=== PATIENT | male | born 1990 | race Two or more races ===

== ENCOUNTER 2024-02-16 11:01 | Outpatient (REF) | payer OTHER, SELFPAY ==
[2024-02-16 13:03] LABS: MANUAL DIFF FLAG NO
[2024-02-16 13:06] LABS: Basophils Absolute Auto 0.1 X10*3/uL (0.0-0.2); Basophils Percent Auto 1.2 % (0-2); Eosinophils Absolute Auto 0.1 X10*3/uL (0.0-0.4); Eosinophils Percent Auto 1.1 % (0-4); Hematocrit 41.7 % (42.0-52.0); Hemoglobin 14.3 g/dl (14.0-18.0); Imm Gran Abs Auto 0.02 X10*3/uL (0.00-0.03); Imm Gran Pct Auto 0.3 % (0.0-0.4); Lymphocytes Absolute Auto 1.8 X10*3/uL (1.2-4.9); Lymphocytes Percent Auto 23.5 % (20-40); Mean Corpuscular HGB Conc 34.3 g/dl (31.0-36.0); Mean Corpuscular Hemoglobin 31.8 pg (27.0-33.0); Mean Corpuscular Volume 92.7 fL (80.0-98.0); Mean Platelet Volume 9.9 fL (9.4-12.4); Monocytes Absolute Auto 0.7 X10*3/uL (0.1-1.2); Monocytes Percent Auto 9.5 % (2-11); Neutrophils Absolute Auto 4.8 x10*3/uL (2.0-8.3); Neutrophils Percent Auto 64.4 % (45-73); Platelet Count 303 X10*3/uL (160-400); Red Cell Distribution Width 12.7 % (11.0-16.0); White Blood Count 7.5 X10*3/uL (4.8-10.8)
[2024-02-16 13:16] LABS: Anion Gap 11 (12-20); Blood Urea Nitrogen 14 mg/dL (9-16); Calcium 9.4 mg/dL (8.4-10.2); Carbon Dioxide 28 mmol/L (22-29); Chloride 104 mmol/L (96-108); Cholesterol 213 mg/dL (<200); Estimated Glomerular Filt Rate > 60; Glucose Random 96 mg/dL (60-115); Potassium 4.4 mmol/L (3.3-5.1); Sodium 139 mmol/L (135-145)
== END 2024-02-16 11:02 | disposition home or self-care (01) ==
LOC: HO.10HDL 11:01
PROVIDERS: Visit Provider Internal Medicine
DX: R63.4 Abnormal weight loss (principal); Z83.3 Family history of diabetes mellitus
CPT/HCPCS: 36415; 80048; 82465; 85025

== ENCOUNTER 2024-05-22 04:36 | Emergency (ER) | payer OTHER, SELFPAY ==
[2024-05-22] VITALS (7 sets, daily range): BP systolic 104–158; BP diastolic 49–94; PULSE 70–95; RESP 16–20; TEMP 36.7–37; O2SAT 96–100; BMI 30.7
--- NOTE | ~2024-05-22 | CT_ITS ---
EXAMINATION: CT ABDOMEN AND PELVIS WITHOUT CONTRAST CLINICAL INFORMATION: Left flank pain with history of kidney stone. COMPARISON: CT abdomen and pelvis 03/14/2012. TECHNIQUE: Multidetector volumetric imaging was performed from the superior aspect of the liver through the pubic symphysis. Sagittal and coronal reformatted images were obtained on the technologist's workstation. This CT examination was performed using dose optimization techniques as appropriate, variously including the following: *Automated exposure control *Adjustment of mA and/or kV according to patient size (this includes techniques or standardized protocols for targeted exams where dose is matched to indication/reason for exam; i.e. extremities or head) *Use of iterative reconstruction technique DLP: 646 mGy-cm FINDINGS: LUNG BASES: The visualized lung bases are unremarkable. LIVER, GALLBLADDER, AND BILIARY TREE: The liver is normal in size, shape, and attenuation. No focal hepatic lesion or biliary ductal dilatation is present. The gallbladder is unremarkable with no evidence of radiopaque gallstones, gallbladder wall thickening, or obvious pericholecystic inflammatory changes. PANCREAS: Unremarkable. SPLEEN: Unremarkable. ADRENAL GLANDS: Unremarkable. KIDNEYS AND URETERS: On the left, there is an obstructing mid ureteral 4 mm calculus present which measures about 850 Hounsfield units and is 14.5 cm from the posterior axillary line. There is moderate associated dilatation of the ureter and hydronephrosis. A few other punctate nonobstructing calculi are present in the left kidney. About 3 small punctate nonobstructing calculi are present in the right kidney measuring about 2 mm or less in size. No renal masses are seen. BLADDER: Decompressed but unremarkable. GASTROINTESTINAL TRACT: The small and large bowel are unremarkable. The appendix is unremarkable. ABDOMINAL WALL: No significant hernia is appreciated. LYMPH NODES: Normal. VASCULAR: Unremarkable. PELVIC VISCERA: Unremarkable. OSSEOUS STRUCTURES: There is a mild scoliosis. No bony destructive lesions are seen. CT/CT abdomen pelvis wo IV con IMPRESSION: 1. Obstructing 4 mm left mid ureteral calculus with moderate hydronephrosis. 2. Bilateral nonobstructing renal calculi. Fleischner guidelines were followed.
[2024-05-22 05:07] LABS: Basophils Absolute Auto 0.1 X10*3/uL (0.0-0.2); Basophils Percent Auto 1.2 % (0-2); Eosinophils Absolute Auto 0.4 X10*3/uL (0.0-0.4); Eosinophils Percent Auto 4.1 % (0-4); Hematocrit 43.7 % (42.0-52.0); Hemoglobin 15.1 g/dl (14.0-18.0); Imm Gran Abs Auto 0.02 X10*3/uL (0.00-0.03); Imm Gran Pct Auto 0.2 % (0.0-0.4); Lymphocytes Absolute Auto 4.5 X10*3/uL (1.2-4.9); Lymphocytes Percent Auto 47.2 % (20-40); MANUAL DIFF FLAG NO; Mean Corpuscular HGB Conc 34.6 g/dl (31.0-36.0); Mean Corpuscular Hemoglobin 32.3 pg (27.0-33.0); Mean Corpuscular Volume 93.4 fL (80.0-98.0); Mean Platelet Volume 9.9 fL (9.4-12.4); Monocytes Absolute Auto 1.1 X10*3/uL (0.1-1.2); Monocytes Percent Auto 11.1 % (2-11); Neutrophils Absolute Auto 3.4 x10*3/uL (2.0-8.3); Neutrophils Percent Auto 36.2 % (45-73); Platelet Count 308 X10*3/uL (160-400); Red Blood Count 4.68 X10*6/uL (4.60-5.80); Red Cell Distribution Width 12.8 % (11.0-16.0); White Blood Count 9.4 X10*3/uL (4.8-10.8)
[2024-05-22 05:08] LABS: Appearance Urine Clear; Color Urine Yellow; Glucose Urine UA Negative (Negative); Leukocyte Esterase Urine Negative (Negative); Nitrite Urine Negative (Negative); Specific Gravity - Urine 1.025 (1.005-1.025); UMIC TRIGGER UACC YES; Urine Blood Large (3+) (Negative); Urine Ketones Negative (Negative); Urine Protein Trace mg/dL (Neg-Trace)
[2024-05-22 05:10] LABS: Bacteria Urine None Seen (None Seen); Hyaline Casts Urine 0-2 /LPF (0-2); RBC Urine >20 /HPF (0-2); Squamous Epithelial Cell Urine 0-2 /HPF (0-2); WBC Urine 0-5 /HPF (0-5)
[2024-05-22 05:20] LABS: Alanine Aminotransferase 29 U/L (0-40); Albumin Level 4.3 g/dL (3.5-5.0); Alkaline Phosphatase 69 U/L (39-117); Anion Gap 13 (12-20); Aspartate Amino Transferase 25 U/L (5-37); Bilirubin Direct 0.1 mg/dL (0.0-0.5); Bilirubin Total 0.4 mg/dL (0.0-1.0); Blood Urea Nitrogen 13 mg/dL (9-16); Calcium 8.8 mg/dL (8.4-10.2); Carbon Dioxide 27 mmol/L (22-29); Chloride 106 mmol/L (96-108); Creatinine Clr Calc Pharmacy 121.3; Estimated Glomerular Filt Rate > 60; Glucose Random 110 mg/dL (60-115); Lipase 15 U/L (8-78); Potassium 4.1 mmol/L (3.3-5.1); Sodium 142 mmol/L (135-145); Total Protein 7.4 g/dL (6.5-8.0)
--- NOTE | 2024-05-22 05:46 | ED_ITS ---
HPI - Abdominal Pain General Chief Complaint: Abdominal Pain Stated Complaint: L flank pain Time Seen by Provider: 05/22/24 05:43 Source: patient Mode of arrival: ambulatory Limitations: no limitations History of Present Illness ED Provider: ángel ARDON narrative: Patient's history of kidney stone but 5 years ago which passed without any intervention comes here for acute onset of pain since 04:00 woke him up from sleep had dull pain for last 1 week no hematuria no dysuria no fever no chills no history of chronic back pain no history of trauma Related Data Previous Rx's ?Medication ?Instructions ?Recorded ondansetron 4 mg disintegrating 4 mg PO Q6-8H PRN nausea and 05/22/24 tablet vomiting #7 tabs oxycodone-acetaminophen 5 mg-325 1 tab PO Q6H PRN pain #20 tabs 05/22/24 mg tablet (Percocet) tamsulosin 0.4 mg capsule (Flomax) 0.4 mg PO BEDTIME #7 caps 05/22/24 Allergies Allergy/AdvReac Type Severity Reaction Status Date / Time No Known Allergies Allergy Verified 05/22/24 04:54 Review of Systems Review of Systems Yes all other systems are reviewed and are negative [facility] Past Medical History Medical History (Updated 05/22/24 @ 06:58 by Epi Ferrari MD) Kidney stone Social History Social History Smoked in Last 30 Days: No Use of substances other than those prescribed or required for medical reasons: No Advance Directives: No Advance Directives Information Provided: Yes Do you have a plan to hurt others: No Plan Physical Exam ED Vital Signs: Vital Signs - 24 hr 05/22/24 04:53 05/22/24 06:05 05/22/24 06:34 Temperature 98.1 F Pulse Rate 95 70 Respiratory Rate 20 16 18 Blood Pressure 158/94 H 148/85 H Pulse Oximetry 100 96 Oxygen Delivery Method Room Air Room Air BMI result Body Mass Index 30.7 Appearance: Alert. Oriented X3. in moderate distress Eyes: No pallor or icterus ENT: Pharynx normal. Oral Mucosa moist Neck: Normal inspection. Neck supple. CVS: Normal heart rate and rhythm. Pulses normal. Respiratory: No respiratory distress. Equal air entry bilateral, no wheezing/rales/rhonchi Abdomen: Soft and nontender. Bowel sounds are present, no mass palpable, left CVA tenderness Skin: Skin warm and dry. Normal skin color. Normal skin turgor. Extremities: No lower extremity edema. No calf tenderness Neuro: Oriented X 3. No motor deficit. Medical Decision Making Medical Decision Making [facility] Narrative: Patient with 3 mm left mid ureteral stone with hydronephrosis feeling much better but still has pain will give another dose of Dilaudid IV plan to discharge patient home on pain medication Flomax and follow up with urologist Differential Diagnosis Differential Diagnoses: The differential diagnosis associated with the presentation includes Renal colic / diverticulitis/UTI Admission/Observation Consideration of admission/observation: Escalation of care including admission/observation considered Lab Data [facility] Lab Attestation statement: I reviewed the patient's lab results. 05/22/24 04:57 05/22/24 04:57 Labs: Lab Results 05/22/24 Range/Units 04:57 WBC 9.4 (4.8-10.8) X10*3/uL RBC 4.68 (4.60-5.80) X10*6/uL Hgb 15.1 (14.0-18.0) g/dl Hct 43.7 (42.0-52.0) % MCV 93.4 (80.0-98.0) fL MCH 32.3 (27.0-33.0) pg MCHC 34.6 (31.0-36.0) g/dl RDW 12.8 (11.0-16.0) % Plt Count 308 (160-400) X10*3/uL MPV 9.9 (9.4-12.4) fL Immature Gran % (Auto) 0.2 (0.0-0.4) % Neut % (Auto) 36.2 L (45-73) % Lymph % (Auto) 47.2 H (20-40) % [place] % (Auto) 11.1 H (2-11) % Eos % (Auto) 4.1 H (0-4) % Baso % (Auto) 1.2 (0-2) % Lymph # (Auto) 4.5 (1.2-4.9) X10*3/uL [place] # (Auto) 1.1 (0.1-1.2) X10*3/uL Eos # (Auto) 0.4 (0.0-0.4) X10*3/uL Baso # (Auto) 0.1 (0.0-0.2) X10*3/uL Abs Immat Gran (auto) 0.02 (0.00-0.03) X10*3/uL Absolute Neuts (auto) 3.4 (2.0-8.3) x10*3/uL Absolute Nucleated RBC 0.000 (0.0-0.012) X10*3/uL Nucleated RBC % (auto) 0.0 (0.0-0.2) /100WBC Sodium 142 (135-145) mmol/L Potassium 4.1 (3.3-5.1) mmol/L Chloride 106 (96-108) mmol/L Carbon Dioxide 27 (22-29) mmol/L Anion Gap 13 (12-20) BUN 13 (9-16) mg/dL Creatinine 0.96 (0.5-1.4) mg/dL Estim Creat Clear Calc 121.3 Estimated GFR > 60 Random Glucose 110 (60-115) mg/dL Calcium 8.8 D (8.4-10.2) mg/dL Total Bilirubin 0.4 (0.0-1.0) mg/dL Direct Bilirubin 0.1 (0.0-0.5) mg/dL AST 25 (5-37) U/L ALT 29 (0-40) U/L Alkaline Phosphatase 69 (39-117) U/L Total Protein 7.4 (6.5-8.0) g/dL Albumin 4.3 (3.5-5.0) g/dL Lipase 15 (8-78) U/L Urine Color Yellow Urine Appearance Clear Urine pH 6.0 (5.0-9.0) Ur Specific [place] 1.025 (1.005-1.025) Urine Protein Trace (Neg-Trace) mg/dL Urine Glucose (UA) Negative (Negative) mg/dL Urine Ketones Negative (Negative) mg/dL Urine Blood Large (3+) H (Negative) Urine Nitrite Negative (Negative) Ur Leukocyte Esterase Negative (Negative) Urine RBC >20 H (0-2) /HPF Urine WBC 0-5 (0-5) /HPF Ur Squamous Epith Cells 0-2 (0-2) /HPF Urine Bacteria None Seen (None Seen) Hyaline Casts 0-2 (0-2) /LPF Independent Interpretation I performed an independent interpretation of an: CT Scan Interpretation: Left mid ureteric stone 3 mm with mild hydronephrosis Medications Administered Discontinued Medications Generic Name Dose Route Start Last Admin Trade Name Freq PRN Reason Stop Dose Admin Sodium Chloride 1,000 mls @ 999 mls/hr 05/22/24 05:41 05/22/24 06:33 Ns IV 05/22/24 06:41 999 mls/hr .Q1H1M ONE Administration Ketorolac Tromethamine 30 mg 05/22/24 05:41 05/22/24 06:05 Ketorolac Tromethamine 30 Mg/Ml Vial IVPUSH 05/22/24 05:42 30 mg ONCE ONE Administration Morphine Sulfate 4 mg 05/22/24 05:41 05/22/24 06:05 Morphine Sulfate 4 Mg/Ml Cartridge IVPUSH 05/22/24 05:42 4 mg ONCE ONE Administration Protocol Ondansetron HCl 4 mg 05/22/24 05:41 05/22/24 06:05 Ondansetron Hcl 4 Mg/2 Ml Vial IVPUSH 05/22/24 05:42 4 mg ONCE ONE Administration Discharge Plan Discharge Clinical Impression: Calculus of left ureter Patient Disposition: Still a Patient Instructions: Low Oxalate Diet (ED), Ureteral Stones (ED) Additional Instructions: Drink plenty of fluids Take pain medication and Flomax as prescribed till you pass the stone Follow with urologist if not better Prescriptions: New oxycodone-acetaminophen [Percocet] 5-325 mg tablet 1 tab PO Q6H PRN (Reason: pain) Qty: 20 0RF Rx Instructions: Partial Fill upon patient request. tamsulosin [Flomax] 0.4 mg capsule 0.4 mg PO BEDTIME Qty: 7 0RF ondansetron 4 mg tablet,disintegrating 4 mg PO Q6-8H PRN (Reason: nausea and vomiting) Qty: 7 0RF Print Language: Pashto
[2024-05-22] MEDS: ondansetron HCL 4 MG/2 ML VIAL IVPUSH ×2 (06:05→08:36)
[2024-05-22] MEDS: Morphine Sulfate 4 MG/ML CARTRIDGE IVPUSH (06:05)
[2024-05-22] MEDS: Ketorolac Tromethamine 30 MG/ML VIAL IVPUSH (06:05)
[2024-05-22] MEDS: 0.9 % Sodium Chloride 1,000 ML 999 ML IV (06:33)
[2024-05-22] MEDS: HYDROmorphone HCl 2 MG/ML VIAL IVPUSH (07:36)
[2024-05-22] MEDS: Tamsulosin HCL 0.4 MG CAPSULE PO (07:36)
--- NOTE | 2024-05-22 08:06 | PC.NURSE ---
vomited small amount following dilaudid. nausea meds requested of Provider
[2024-05-22] MEDS: Lactated Ringers 1,000 ML 999 ML IV (10:20)
== END 2024-05-22 10:57 | disposition home or self-care (01) ==
PROVIDERS: Internal Medicine; Emergency Provider Emergency Medicine; PCP Internal Medicine
DX: N20.1 Calculus of ureter (principal); R11.0 Nausea; R10.9 Unspecified abdominal pain; Z79.899 Other long term (current) drug therapy
CPT/HCPCS: 36415; 74176; 80053; 81001; 82248; 83690; 85025; 96361; 96374; 96375; 96376; 99284; 99285; J1170; J1885; J2270; J2405; J7120

== ENCOUNTER 2025-01-31 01:32 | Emergency (ER) | payer OTHER, SELFPAY ==
--- NOTE | ~2025-01-31 | XR_ITS ---
CLINICAL HISTORY: pain Exam: Supine abdominal radiograph. Comparison: None. Findings: Air-filled loops of nondilated large and small bowel are seen throughout the abdomen and pelvis. No indirect evidence for free air is seen on this supine exam. Lung bases are clear. Mild elevation of the right hemidiaphragm. No abnormal soft tissue calcifications are identified over the bilateral kidneys or expected course of the ureters. No acute bony lesions. Impression: No findings of bowel obstruction. This document has been electronically signed by: Sina Mcnamara MD on 01/31/2025 03:34:54
[2025-01-31 01:34] VITALS: BP 147/86; PULSE 80; RESP 18; TEMP 36.4; O2SAT 99; BMI 28.6
[2025-01-31 01:51] LABS: MANUAL DIFF FLAG NO
[2025-01-31 01:54] LABS: Basophils Absolute Auto 0.1 X10*3/uL (0.0-0.2); Basophils Percent Auto 1.2 % (0-2); Eosinophils Absolute Auto 0.3 X10*3/uL (0.0-0.4); Eosinophils Percent Auto 4.4 % (0-4); Hematocrit 41.2 % (42.0-52.0); Hemoglobin 14.1 g/dl (14.0-18.0); Imm Gran Abs Auto 0.01 X10*3/uL (0.00-0.03); Imm Gran Pct Auto 0.1 % (0.0-0.4); Lymphocytes Absolute Auto 3.5 X10*3/uL (1.2-4.9); Lymphocytes Percent Auto 50.1 % (20-40); Mean Corpuscular HGB Conc 34.2 g/dl (31.0-36.0); Mean Corpuscular Hemoglobin 31.5 pg (27.0-33.0); Mean Corpuscular Volume 92.2 fL (80.0-98.0); Mean Platelet Volume 9.7 fL (9.4-12.4); Monocytes Absolute Auto 0.7 X10*3/uL (0.1-1.2); Monocytes Percent Auto 10.6 % (2-11); Neutrophils Absolute Auto 2.3 x10*3/uL (2.0-8.3); Neutrophils Percent Auto 33.6 % (45-73); Platelet Count 270 X10*3/uL (160-400); Red Blood Count 4.47 X10*6/uL (4.60-5.80); Red Cell Distribution Width 12.5 % (11.0-16.0); White Blood Count 6.9 X10*3/uL (4.8-10.8)
[2025-01-31 02:20] LABS: Alanine Aminotransferase 24 U/L (0-40); Alkaline Phosphatase 73 U/L (39-117); Anion Gap 12 (12-20); Aspartate Amino Transferase 25 U/L (5-37); Bilirubin Total 0.3 mg/dL (0.0-1.0); Blood Urea Nitrogen 12 mg/dL (9-16); Calcium 8.9 mg/dL (8.4-10.2); Carbon Dioxide 29 mmol/L (22-29); Chloride 106 mmol/L (96-108); Creatinine Clr Calc Pharmacy 128.3; Estimated Glomerular Filt Rate > 60; Glucose Random 98 mg/dL (60-115); Lipase 22 U/L (8-78); Potassium 3.8 mmol/L (3.3-5.1); Sodium 143 mmol/L (135-145); Total Protein 6.9 g/dL (6.5-8.0)
[2025-01-31] MEDS: Famotidine/PF 20 MG/2 ML VIAL IVPUSH (02:31)
[2025-01-31] MEDS: Sucralfate Oral Suspension 1 GM/10 ML ORAL.SUSP PO (02:31)
[2025-01-31 02:42] LABS: Appearance Urine Turbid; Color Urine Yellow; Glucose Urine UA Negative (Negative); Leukocyte Esterase Urine Negative (Negative); Nitrite Urine Negative (Negative); PH 7.5 (5.0-9.0); Specific Gravity - Urine 1.015 (1.005-1.025); Urine Blood Negative (Negative); Urine Ketones Negative (Negative); Urine Protein Negative (Neg-Trace)
--- NOTE | 2025-01-31 03:14 | ED_ITS ---
HPI - General Adult General Chief complaint: Abdominal Pain Stated complaint: abd pain Time Seen by Provider: 01/31/25 02:00 Source: patient Limitations: no limitations History of Present Illness ED Provider: Michelle Adames PA-C HPI narrative: 34-year-old male presents with epigastric discomfort for weeks. Pain over epigastric region, with associated excessive eructation and indigestion. Denies postprandial symptoms, nausea, vomiting or fever. Patient denies that he is constipated. Related Data Previous Rx's ?Medication ?Instructions ?Recorded ondansetron 4 mg disintegrating 4 mg PO Q6-8H PRN nausea and 05/22/24 tablet vomiting #7 tabs oxycodone-acetaminophen 5 mg-325 1 tab PO Q6H PRN pain #20 tabs 05/22/24 mg tablet (Percocet) tamsulosin 0.4 mg capsule (Flomax) 0.4 mg PO BEDTIME #7 caps 05/22/24 sucralfate 100 mg/mL oral 10 ml PO QID PRN indigestion #300 01/31/25 suspension (Carafate) mL Allergies Allergy/AdvReac Type Severity Reaction Status Date / Time No Known Allergies Allergy Verified 01/31/25 01:37 Review of Systems 2 Review of Systems: Yes all other systems are reviewed and are negative Constitutional: Constitutional: Denies fatigue and Denies fever(s) Cardiovascular: Cardiovascular: Denies chest pain Respiratory: Respiratory: Denies cough Gastrointestinal: Gastrointestinal: Reports abdominal pain, Denies constipation, Reports dyspepsia, Denies diarrhea, Denies nausea and Denies vomiting Endocrine: Endocrine: Denies fatigue PMFSH Past Medical History Attestation statement: The following information was validated with the patient. Medical History (Updated 01/31/25 @ 03:33 by MADDIE Stanley) Kidney stone Social History Social History Advance Directives: No Advance Directives Information Provided: Yes Do you have a plan to hurt others: No Plan Physical Exam ED Vital Signs: Vital Signs - 24 hr 01/31/25 01:34 Temperature 97.6 F Pulse Rate 80 Respiratory Rate 18 Blood Pressure 147/86 H Pulse Oximetry 99 Oxygen Delivery Method Room Air BMI result Body Mass Index 28.6 Const Other: Alert well-appearing Orientation/consciousness: patient oriented x3 Resp Effort & Inspection: normal respiratory effort Cardio Other: Normal peripheral perfusion GI Other: Abdomen is soft, nontender nondistended no guarding Skin Other: Warm dry no rash Neuro General: patient oriented x3, gait normal, no focal motor deficits and CN's II- XI intact bilaterally Psych Other: Cooperative Medications Administered Discontinued Medications Generic Name Dose Route Start Last Admin Trade Name Chapitoq PRN Reason Stop Dose Admin Famotidine 20 mg 01/31/25 02:14 01/31/25 02:31 Famotidine/Pf 20 Mg/2 Ml Vial IVPUSH 01/31/25 02:15 20 mg ONCE ONE Administration Sucralfate 1 gm 01/31/25 02:14 01/31/25 02:31 Sucralfate Oral Suspension 1 Gm/10 Ml Oral.Susp PO 01/31/25 02:15 1 gm ONCE ONE Administration Medical Decision Making Medical Decision Making [facility] Narrative: 34-year-old male presents with epigastric discomfort for weeks. Pain over epigastric region, with associated excessive eructation and indigestion. Denies postprandial symptoms, nausea, vomiting or fever. Patient denies that he is constipated. No relevant chronic issues History: Per patient I have considered the following differential diagnoses: Biliary colic, cholecystitis, gastritis, poorly controlled GERD, pancreatitis, constipation Plan: Patient's symptoms are consistent with a poorly controlled GERD, obtaining a KUB, I am presuming he is likely concurrently constipated. We will be giving famotidine and Carafate. Screening labs were ordered from triage. Given distribution of discomfort, I did considered biliary and pancreatic etiologies as cause for his symptoms, however he has no active nausea vomiting, his abdominal exam is unremarkable, LFTs and lipase are within normal limits. No indication for advanced imaging. I have independently reviewed the following tests: Labs: No leukocytosis, not anemic, no electrolyte abnormality, urine not infected KUB: constipated Lab Data 01/31/25 01:48 01/31/25 01:48 Labs: Lab Results 01/31/25 01/31/25 Range/Units 01:48 02:35 WBC 6.9 (4.8-10.8) X10*3/uL RBC 4.47 L (4.60-5.80) X10*6/uL Hgb 14.1 (14.0-18.0) g/dl Hct 41.2 L (42.0-52.0) % MCV 92.2 (80.0-98.0) fL MCH 31.5 (27.0-33.0) pg MCHC 34.2 (31.0-36.0) g/dl RDW 12.5 (11.0-16.0) % Plt Count 270 (160-400) X10*3/uL MPV 9.7 (9.4-12.4) fL Immature Gran % (Auto) 0.1 (0.0-0.4) % Neut % (Auto) 33.6 L (45-73) % Lymph % (Auto) 50.1 H (20-40) % [place] % (Auto) 10.6 (2-11) % Eos % (Auto) 4.4 H (0-4) % Baso % (Auto) 1.2 (0-2) % Lymph # (Auto) 3.5 (1.2-4.9) X10*3/uL [place] # (Auto) 0.7 (0.1-1.2) X10*3/uL Eos # (Auto) 0.3 (0.0-0.4) X10*3/uL Baso # (Auto) 0.1 (0.0-0.2) X10*3/uL Abs Immat Gran (auto) 0.01 (0.00-0.03) X10*3/uL Absolute Neuts (auto) 2.3 (2.0-8.3) x10*3/uL Absolute Nucleated RBC 0.000 (0.0-0.012) X10*3/uL Nucleated RBC % (auto) 0.0 (0.0-0.2) /100WBC Sodium 143 (135-145) mmol/L Potassium 3.8 (3.3-5.1) mmol/L Chloride 106 (96-108) mmol/L Carbon Dioxide 29 (22-29) mmol/L Anion Gap 12 (12-20) BUN 12 (9-16) mg/dL Creatinine 0.87 (0.5-1.4) mg/dL Estim Creat Clear Calc 128.3 Estimated GFR > 60 Random Glucose 98 (60-115) mg/dL Calcium 8.9 (8.4-10.2) mg/dL Total Bilirubin 0.3 (0.0-1.0) mg/dL AST 25 (5-37) U/L ALT 24 (0-40) U/L Alkaline Phosphatase 73 (39-117) U/L Total Protein 6.9 (6.5-8.0) g/dL Albumin 4.0 (3.5-5.0) g/dL Lipase 22 (8-78) U/L Urine Color Yellow Urine Appearance Turbid Urine pH 7.5 (5.0-9.0) Ur Specific [place] 1.015 (1.005-1.025) Urine Protein Negative (Neg-Trace) mg/dL Urine Glucose (UA) Negative (Negative) mg/dL Urine Ketones Negative (Negative) mg/dL Urine Blood Negative (Negative) Urine Nitrite Negative (Negative) Ur Leukocyte Esterase Negative (Negative) Discharge Plan Discharge Clinical Impression: Constipation, GERD (gastroesophageal reflux disease) Patient Disposition: Home, Self-Care Instructions: Constipation (ED), Diet for Stomach Ulcers and Gastritis (ED), Gastroesophageal Reflux Disease (ED) Additional Instructions: All of your labs were normal, the x-ray revealed that you are constipated. Constipation can exacerbate indigestion related symptoms. See home care instructions for both conditions. In regard to the acid reflux, there are numerous dietary triggers. Acidic food, spicy food, anything carbonated, alcohol, are common triggers. Do not eat 3 hours before bed. Eating smaller more frequent meals throughout the day, can help curb symptoms. Use the Carafate as needed for upper abdominal discomfort. For the constipation, purchase [id number] Colace, this is a stool softener, take it 1 to 2 times a day. Purchase [id number] MiraLax, use it 3 to 4 times a day, until you self regulate your bowel habits. Follow up with primary care as needed. Prescriptions: New sucralfate [Carafate] 100 mg/mL suspension 10 ml PO QID PRN (Reason: indigestion) Qty: 300 0RF Rx Instructions: swish in mouth and swallow; use after food/drink No Action oxycodone-acetaminophen [Percocet] 5-325 mg tablet 1 tab PO Q6H PRN (Reason: pain) Qty: 20 0RF Rx Instructions: Partial Fill upon patient request. tamsulosin [Flomax] 0.4 mg capsule 0.4 mg PO BEDTIME Qty: 7 0RF ondansetron 4 mg tablet,disintegrating 4 mg PO Q6-8H PRN (Reason: nausea and vomiting) Qty: 7 0RF Print Language: Romanian
[2025-01-31 03:41] VITALS: BP 149/85; PULSE 68; RESP 14; TEMP 36.7; O2SAT 99
--- NOTE | 2025-01-31 03:59 | PC.NURSE ---
pt a&o, no sign of distress, Iv removed, reviewed discharge instructions with pt, pt verbalized understanding, no sign of distress.
[2025-01-31 04:00] VITALS: BP 149/85; PULSE 68; RESP 14; TEMP 36.7; O2SAT 99
== END 2025-01-31 04:01 | disposition home or self-care (01) ==
PROVIDERS: Emergency Provider Emergency Medicine; PCP Dentist General Practice
DX: K59.00 Constipation, unspecified (principal); K21.9 Gastro-esophageal reflux disease without esophagitis; R10.13 Epigastric pain; Z79.899 Other long term (current) drug therapy
CPT/HCPCS: 36415; 74018; 80053; 81003; 83690; 85025; 96374; 99284

== ENCOUNTER → 2025-01-31 02:14 | Outpatient (BNV) | payer OTHER, SELFPAY | PROVIDERS: Emergency Provider Emergency Medicine; PCP Dentist General Practice; Visit Provider Radiology Diagnostic Radiology | DX: R10.30 Lower abdominal pain, unspecified (principal) | CPT/HCPCS: 74018 ==